=== PATIENT | male | born 1985 | race Caucasian/White ===

== ENCOUNTER 2021-01-12 20:17 | Inpatient (IN) | payer SELFPAY ==
[2021-01-12 20:31] VITALS: BP 128/83; PULSE 95; RESP 18; TEMP 36.8; O2SAT 100; BMI 21.5
[2021-01-12 20:46] LABS: Basophils # 0.1 10^3/uL (0.0-0.1); Basophils % 0.5 %; Eosinophils # 0.3 10^3/uL (0.0-0.8); Eosinophils % 2.4 %; Hematocrit 42.5 % (42.0-52.0); Hemoglobin 13.7 g/dL (11.7-16.6); Lymphocytes # 2.8 10^3/uL (0.8-4.8); Lymphocytes % 26.1 %; Mean Corpuscular HGB Conc 32.2 g/dL (30.0-36.0); Mean Corpuscular Hemoglobin 27.6 pg (28.0-34.0); Mean Corpuscular Volume 85.7 fL (80-94); Mean Platelet Volume 9.1 fL (7.4-10.4); Monocytes # 0.8 10^3/uL (0.2-0.9); Monocytes % 7.2 %; Neutrophils # 6.74 10^3/uL (1.8-7.7); Neutrophils % 63.5 %; Nucleated Red Blood Cells % 0 %; Platelet Count 278 10^3/cmm (130-400); Red Blood Count 4.96 10^6/uL (4.1-5.3); Red Cell Distribution Width 14.2 % (12.1-15.1); White Blood Count 10.6 10^3/uL (4.0-10.0)
[2021-01-12 21:06] LABS: Acetaminophen 5.7 ug/mL (10-30); Alanine Aminotransferase 36 U/L (0-41); Albumin Level 4.3 g/dL (3.5-5.2); Alkaline Phosphatase 93 IU/L (40-130); Anion Gap 12.9 (5-19); Aspartate Amino Transferase 24 U/L (0-40); Blood Urea Nitrogen 14 mg/dL (6-20); Calcium 9.2 mg/dL (8.5-10.5); Carbon Dioxide 31 mmol/L (22-29); Chloride 99 mmol/L (98-107); Globulin 2.9 g/dL (1.3-4.6); Glucose 99 mg/dL (65-115); Osmolality Calculated 289 mOsm/kg (285-295); Potassium 3.9 mmol/L (3.5-5.1); Sodium 139 mmol/L (136-145); Total Bilirubin 0.2 mg/dL (0.15-1.2); Total Protein 7.2 g/dL (6.6-8.7)
--- NOTE | 2021-01-12 21:06 | W.ED.PSYCH ---
HPI - Psych General: Chief Complaint: Psychiatric Symptoms Stated Complaint: SI Time Seen by Provider: 01/12/21 20:26 Source: patient Mode of arrival: ambulatory Limitations: no limitations History of Present Illness: HPI Narrative: 35-year-old male is here with depression and suicidality. He states he has been depressed for years has been having suicidal thoughts over the last 2 to 3 days. He is a chronic opiate addict and is currently on Soma for that. He denies any recent drug or alcohol use. He states that he has been having suicidal thoughts with no active plan but states that he is getting concerned as the thoughts are worsening. Denies any worsening improving factors Associated symptoms: Reports suicidal ideation Review of Systems Const: Denies: fever(s), chills, body aches or change in appetite Eyes: Denies: blurry vision or eye discomfort ENMT: Denies: throat pain or dental pain Card: Denies: chest pain Resp: Denies: dyspnea GI: Denies: abdominal pain, nausea, vomiting or diarrhea : Denies: dysuria Musc: Denies: neck pain or back pain Skin/Breast: Denies: rash Neuro: Denies: headache(s) Psych: Reports: suicidal ideation Pedro/Lymph: Denies: easy bruising All/Imm: Denies: urticaria Physical Exam Const: COMMON NORMALS: no acute distress, patient oriented x3 and healthy appearing HENMT: COMMON NORMALS: normocephalic and atraumatic HEAD & SCALP: normocephalic and atraumatic Eye: COMMON NORMALS: Equal, round and reactive pupils present and EOMs intact bilaterally PUPIL: Yes Equal, round and reactive pupils present Neck/C-Spine: COMMON NORMALS: full ROM and supple Chest: COMMONS NORMALS: normal inspection of the chest and normal palpation of entire chest wall Resp: COMMON NORMALS: normal respiratory effort, No retractions, No use of accessory muscles and clear to auscultation bilaterally AUSCULTATION: clear to auscultation bilaterally Cardio: COMMON NORMALS: regular rate, regular rhythm and No murmurs present (Cardio) RATE: regular rate RHYTHM: regular rhythm GI: COMMON NORMALS: Normal to inspection, nondistended, normoactive bowel sounds present, Soft to palpation, non-tender and no masses PALPATION: Yes Soft to palpation Extremity: COMMON NORMALS: normal to inspection and full ROM Neuro: COMMON NORMALS: patient oriented x3, moves all extremities and no focal motor deficits Psych: COMMON NORMALS: mental status grossly normal, Normal thought process present and cooperative THOUGHT PROCESS: Normal thought process present THOUGHT CONTENT: Yes Suicidality present Skin: COMMON NORMALS: no rashes or lesions noted and no wounds GENERAL SKIN EXAM: no rashes or lesions noted Course Vital Signs: Vital signs: Vital Signs Temperature 98.3 F 01/12/21 20:31 Pulse Rate 95 01/12/21 20:31 Respiratory Rate 18 01/12/21 20:31 Blood Pressure 128/83 01/12/21 20:31 Pulse Oximetry 100 01/12/21 20:31 MDM - Psych MDM Narrative: Medical decision making narrative: Patient presents here with suicidal ideations. Patient is medically cleared I spoke to Dr. Sagastume patient placed on a 96-hour hold and will admit. Lab Data: Labs: Lab Results 01/12/21 01/12/21 Range/Units 20:40 20:40 WBC 10.6 H (4.0-10.0) 10^3/ uL RBC 4.96 (4.1-5.3) 10^6/u L Hgb 13.7 (11.7-16.6) g/dL Hct 42.5 (42.0-52.0) % MCV 85.7 (80-94) fL MCH 27.6 L (28.0-34.0) pg MCHC 32.2 (30.0-36.0) g/dL RDW 14.2 (12.1-15.1) % Plt Count 278 (130-400) 10^3/c mm MPV 9.1 (7.4-10.4) fL Neut % (Auto) 63.5 % Lymph % (Auto) 26.1 % Cascade % (Auto) 7.2 % Eos % (Auto) 2.4 % Baso % (Auto) 0.5 % Neut # (Auto) 6.74 (1.8-7.7) 10^3/u L Lymph # (Auto) 2.8 (0.8-4.8) 10^3/u L Cascade # (Auto) 0.8 (0.2-0.9) 10^3/u L Eos # (Auto) 0.3 (0.0-0.8) 10^3/u L Baso # (Auto) 0.1 (0.0-0.1) 10^3/u L Nucleated RBC % (a uto) 0 % Nucleated RBCs # 0.0 /100WBC Sodium 139 (136-145) mmol/L Potassium 3.9 (3.5-5.1) mmol/L Chloride 99 (98-107) mmol/L Carbon Dioxide 31 H (22-29) mmol/L Anion Gap 12.9 (5-19) BUN 14 (6-20) mg/dL Creatinine 0.8 (0.7-1.2) mg/dL GFR Calculation 110.0 (90-130) mL/min Glucose 99 (65-115) mg/dL Calculated Osmolal ity 289 (285-295) mOsm/k g Calcium 9.2 (8.5-10.5) mg/dL Total Bilirubin 0.2 (0.15-1.2) mg/dL AST 24 (0-40) U/L ALT 36 (0-41) U/L Alkaline Phosphata se 93 (40-130) IU/L Total Protein 7.2 (6.6-8.7) g/dL Albumin 4.3 (3.5-5.2) g/dL Globulin 2.9 (1.3-4.6) g/dL Salicylates < 0.3 L (3-10) mg/dL Acetaminophen 5.7 L (10-30) ug/mL Ethyl Alcohol < 10 (0-10) mg/dL Discharge Plan Discharge Patient Disposition: Admitted As Inpatient Clinical Impression: Suicidal ideation Condition: Stable Coding Level of Care Code ED Wafer Fabrication Technician for Aurelio Fwd Exam Comprehensive
[2021-01-12 21:08] LABS: Alcohol Level < 10 mg/dL (0-10); Salicylate < 0.3 mg/dL (3-10)
[2021-01-12 21:15] LABS: Amphetamines Screen Urine Positive (Negative); Barbiturates Screen Urine Negative (Negative); Benzodiazepines Screen Urine Negative (Negative); Cocaine Screen Urine Negative (Negative); Opiate Screen Urine Positive (Negative); PCP Screen Urine Negative (Negative); THC Screen Urine Positive (Negative)
[2021-01-12] MEDS: LORazepam 2 mg/mL INJ 1 mL IM (21:44)
[2021-01-12 22:51] VITALS: BP 111/79; PULSE 86; RESP 15; TEMP 37.1; O2SAT 96
[2021-01-12 22:53] VITALS: BMI 21.5
--- NOTE | 2021-01-12 23:00 | PC.NURSE ---
ADMIT 35/M 96 hr. hold?SI/no plan BAL is neg. 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 Homeless over the last 2 months, ?living on the streets?. Pt does have recent use of Suboxone 8-2?s BID , Naloxone 2mg BID, unsure of program association and compliance( [place]), last received 12/24/20, no medication presented on arrival. Home Meds held per Dr. Sagastume last filled 08/11/20. Pt sedated on arrival from ED. Received 2mg Ativan for pseudo seizure. PHARMACY IN [facility] PHONE [phone] FAX [phone]
[2021-01-12] MEDS: nicotine 2 mg Gum BUCCAL (23:29)
[2021-01-13 06:00] VITALS: BP 114/68; PULSE 57; RESP 15; TEMP 37.1; O2SAT 99
[2021-01-13 14:00] VITALS: BP 106/68; PULSE 94; RESP 17; TEMP 36.7; O2SAT 99
--- NOTE | 2021-01-13 15:04 | P.HP_ITS ---
Providers/Chief Complaint Admitting Physician: Ash Sagastume MD Chief Complaint: SI HPI NPU History of Present Illness Zan Sagastume is a 35 year old male who presented to the emergency department with the following report: Chief Complaint: Psychiatric Symptoms Stated Complaint: SI Time Seen by Provider: 01/12/21 20:26 Source: patient Mode of arrival: ambulatory Limitations: no limitations History of Present Illness: HPI Narrative: 35-year-old male is here with depression and suicidality. He states he has been depressed for years has been having suicidal thoughts over the last 2 to 3 days. He is a chronic opiate addict and is currently on Soma for that. He denies any recent drug or alcohol use. He states that he has been having suicidal thoughts with no active plan but states that he is getting concerned as the thoughts are worsening. Denies any worsening improving factors Associated symptoms: Reports suicidal ideation. He was admitted to the neuropsychiatric unit for definitive treatment of those issues. He presents today reporting that he had no psychiatric inpatient treatment or significant outpatient treatment with any longevity. He never been on psychiatric medications that he can identify. He reports he smokes about a pack of cigarettes a day, has alcohol very rarely, has marijuana daily and denies cocaine methamphetamine but does endorse significant opiate challenges. He reports he had over half a dozen rehab stays, possibly over half a dozen DUIs. He reports that he was struggling overall and his behavior starting to scare his mother. He reports that he had gotten off of the opiates and has been taking Suboxone and had a provider which was working effectively but then when he was due for his medication last Tuesday his doctor was on vacation and so that put him in a tailspin and now he is in significant withdrawal, feeling depressed and being unclear what to do. Reports having significant anxiety along with those withdrawal symptoms. We discussed the plan as follows. We agreed that we would administer clonidine and additional as needed medications to assist with withdrawal symptoms today. But we discussed the fact that we would write for his Suboxone while he is in the hospital if we get confirmation from his provider that they will continue his treatment and provide a prescription for him for an appointment to get a prescription on the day of discharge. He understood and agreed proceed as documented in this note. Psychiatric history: As above. He does report having a couple suicide attempt in his life the last one was about 10 years ago. Substance abuse history: As above. Family history: He endorses having mental health issues on his father side of family, addiction issues on the sides of the family and endorses that his father completed suicide when he was about 4 years old. Developmental history: There were no problems with the , or delivery, learned to walk and talk and met developmental milestones on time, and denies need for speech therapy, learning support, emotional support or special education classes. Psychosocial history: He reports his mother and father were together when he was born and stayed together until his father committed suicide. He has a younger sister that is a product of that union. Neither of his parents have any children other than those two. He reports that after his father and grandmother raised them. He reports his childhood was fine. He denies any emotional physical or sexual abuse. Highest grade reach was 11th grade and has not gotten his GED. He en dorses being a heterosexual as well as relationship being 3 to 4 years. He is been one time and was in June 2017 due to a drug overdose by his , he never had biological children, is never in the and denies any pentecostal [employer] system. 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 He reports he is currently homeless for few weeks because he was living above or in the shop that he was working but that he lost his job so he lost his housing. Legal history: He reports that he is been in detention many times. His longest time behind bars and wants is 4 to 5 months. Medical history: Please see ED note for full details but he does have poor dentition. Meds NPU Home Medications Medication Instructions Recorded Confirmed Last Taken Type buprenorphine-naloxone 1 film SUBLINGUAL BID 01/14/21 01/14/21 12/31/20 History Allergies Allergy/AdvReac Type Severity Reaction Status Date / Time No Known Allergies Allergy Verified 01/12/21 20:41 Mental Status Exam MSE Comments: This is a slender/underweight white male in hospital scrubs with limited grooming and eye contact. No abnormal movements except for psychomotor retardation. Semicooperative with exam in mild to moderate distress. Speech was decreased rate and volume. Mood described as tired, affect annoyed. Thought process organized. Thought content: Patient denied suicidal or homicidal ideation, there were no delusions reported or noted, he denied any auditory or visual hallucinations. Attention and concentration were limited and memory was mostly reliable but none were formally tested. He is alert and oriented x3. Insight and judgment are limited and impulse control is impaired. Vitals/I&O/Wt Last Vital Signs Temp 98.1 F 01/13/21 14:00 Pulse 94 01/13/21 14:00 Resp 17 01/13/21 14:00 BP 106/68 01/13/21 14:00 Pulse Ox 99 01/13/21 14:00 Weight last 48 hrs Weight 68.039 kg Weight 68.039 kg Data NPU : 01/12/21 20:40 01/12/21 20:40 A&P Assessment and plan (1) Suicidal ideation: Status: Acute (2) Opiate use: Status: Acute (3) Opioid withdrawal: Status: Acute (4) Depression: Status: Acute (5) Anxiety: Status: Acute Additional A&P Information This is a 35-year-old white male with a long history of addiction who presents with depression, and current withdrawal. 1. Continue current medication. We will start on guardian for withdrawal symptoms consider prescribing some once a outpatient provider. 2. Continue every 15 minute checks for safety. 3. Encourage individual, group and milieu therapies. 4. Encourage sober living treatment after discharge at the highest level of care to which he is willing to commit. Involuntary Hold Information 96 Hour Hold: 96 Hour Involuntary Admission: Yes 96 Hour Hold Ending Date: 01/16/21 96 Hour Hold Ending Time: 21:44 Attestations NPU Medical Necessity Statement*: Inpatient hospitalization is medically necessary and the clinically appropriate intervention at this time. We will monitor medications and make changes as indicated. Patient will be in the hospital for over two midnights. Likely length of stay 2-4 Coding Level of Care Code Acute Fire Equipment Inspector Helper for Chg Fwd Diagnoses Suicidal ideation R45.851 Opiate use F11.90 Opioid withdrawal F11.23 Depression F32.9 Anxiety F41.9
[2021-01-13] MEDS: ondansetron 4 MG Tablet PO (17:51)
--- NOTE | 2021-01-13 18:09 | PC.NURSE ---
PRN ZOFRAN 4 MG GIVEN PO PER PT C/O NAUSEA/VOMITING. PT THREW UP ON FLOOR IN HIS ROOM, CLEANED UP BY NURSING STAFF. CALL PLACED TO HOUSEKEEPING TO MOP FLOOR. PT RESTING IN BED CURRENTLY STAFF WILL CONT TO MONITOR CLOSELY
[2021-01-13 21:12] VITALS: BP 142/86; PULSE 59; RESP 18; TEMP 36.6; O2SAT 96
[2021-01-13] MEDS: trazodone 50 mg Tablet PO (22:28)
[2021-01-14 06:00] VITALS: BP 124/78; PULSE 76; RESP 18; TEMP 37.1; O2SAT 97
[2021-01-14] MEDS: acetaminophen 325 mg Tablet 650 MG PO ×2 (09:39→22:02)
[2021-01-14] MEDS: hyDROXYzine 25 mg Capsule 50 MG PO ×2 (09:39→21:52)
[2021-01-14] MEDS: cloNIDine 0.1 mg Tablet PO (09:40)
[2021-01-14] MEDS: nicotine 21 mg Patch 1 PATCH TRANSDERMA (10:35)
--- NOTE | 2021-01-14 11:15 | PC.NURSE ---
Syeda from Claud[facility] office in [place] has verified that patient has been on Suboxone. Patient has an appointment with Claudette on 01/20 and she has called in a refill for the Suboxone to [facility] in [facility]. She is giving him 5 days of medication. - 01/20 to cover him until he is seen.
[2021-01-14] MEDS: buprenorphine-naloxone 4-1 mg Film 2 EACH SUBLINGUAL ×2 (13:28→17:32)
[2021-01-14 14:00] VITALS: BP 89/55; PULSE 71; RESP 18; TEMP 36.8; O2SAT 96
--- NOTE | 2021-01-14 17:46 | PC.NURSE ---
Per Dr. Sagastume patient may use his elastic knee brace.
--- NOTE | 2021-01-14 17:58 | PM.NPN ---
Subjective NPU Subjective: Interval history: Christina presents today reporting that he is feeling a little bit better now that he is got the dose of the Suboxone. He was very thankful for us collaborating with his outpatient team to get him reconnected with his provider who had been on vacation. He reports he started to feel a little better. We discussed getting a couple doses in and identifying if he feels well enough to consider discharge in the next day or so. Mental Status Exam MSE Comments: This is a slender/underweight white male in hospital scrubs with limited grooming and eye contact. No abnormal movements except for psychomotor retardation. More cooperative with exam in mild distress. Speech was decreased rate and volume. Mood described as starting to feel better, affect congruent. Thought process organized. Thought content: Patient denied suicidal or homicidal ideation, there were no delusions reported or noted, he denied any auditory or visual hallucinations. Attention and concentration were improving and memory was mostly reliable but none were formally tested. He is alert and oriented x3. Insight and judgment are improving and impulse control is limited, but improving. Vitals/I&O/Wt Last Vital Signs Temp 97.8 F 01/14/21 20:28 Pulse 73 01/14/21 20:28 Resp 18 01/14/21 20:28 BP 99/56 01/14/21 20:28 Pulse Ox 96 01/14/21 20:28 Data NPU : 01/12/21 20:40 01/12/21 20:40 A&P Additional A&P Information (1) Suicidal ideation: (2) Opiate use: (3) Opioid withdrawal: (4) Depression: (5) Anxiety: Additional A&P Information This is a 35-year-old white male with a long history of addiction who presents with depression, and current withdrawal. 1. Continue current medication. We'll start Suboxone inpatient with a plan to discharge in the next 48 hours with outpatient prescription already called in by provider. 2. Continue every 15 minute checks for safety. 3. Encourage individual, group and milieu therapies. 4. Encourage sober living treatment after discharge at the highest level of care to which he is willing to commit. Involuntary Hold Information 96 Hour Hold: 96 Hour Involuntary Admission: Yes 96 Hour Hold Ending Date: 01/16/21 96 Hour Hold Ending Time: 21:44 Attestations NPU Medical Necessity Statement*: Inpatient hospitalization is medically necessary and the clinically appropriate intervention at this time. We will monitor medications and make changes as indicated. Likely length of stay 1-3 days. Coding Level of Care Code Acute Office Clerk for Aurelio Mcclure
[2021-01-14 20:28] VITALS: BP 99/56; PULSE 73; RESP 18; TEMP 36.6; O2SAT 96
--- NOTE | 2021-01-14 21:49 | PC.NURSE ---
PRNS/nausea/hunger Visteril 50mg PO given for anxiety Vernon gum received, removed nicotine patch zofran 4mg po given for nausea trazodone 50mg PO given to help patient rest Pt came to desk stating he was hungry, was nauseated the last couple of days, and would like something to eat. Pt received clear beverage, chicken noodle soup, crackers, and medication.
[2021-01-14] MEDS: trazodone 50 mg Tablet PO (21:52)
[2021-01-14] MEDS: ondansetron 4 MG Tablet PO (21:52)
[2021-01-14] MEDS: nicotine 2 mg Gum BUCCAL (21:53)
[2021-01-15 06:00] VITALS: BP 123/69; PULSE 68; RESP 18; TEMP 36.9; O2SAT 96
[2021-01-15] MEDS: sennosides 8.6 mg Tablet PO ×2 (08:21→21:17)
[2021-01-15] MEDS: buprenorphine-naloxone 4-1 mg Film 2 EACH SUBLINGUAL ×2 (08:21→18:42)
[2021-01-15] MEDS: nicotine 21 mg Patch 1 PATCH TRANSDERMA (09:30)
[2021-01-15 13:46] VITALS: BP 99/65; PULSE 89; RESP 16; TEMP 37.1; O2SAT 96
--- NOTE | 2021-01-15 17:57 | PM.NPN ---
Subjective NPU Subjective: Interval history: And presents today reporting that things are going better each day and he feels a little better now he is on Suboxone again. He has been working with the treatment team for discharge planning. Resources are being put in place with a plan for discharge in the morning. Mental Status Exam MSE Comments: This is a slender/underweight white male in hospital scrubs with limited grooming and eye contact. No abnormal movements except for psychomotor retardation, with mild improvement. More cooperative with exam in no acute distress. Speech was decreased rate and volume. Mood described as starting to feel better, affect congruent. Thought process organized. Thought content: Patient denied suicidal or homicidal ideation, there were no delusions reported or noted, he denied any auditory or visual hallucinations. Attention and concentration were improving and memory was mostly reliable but none were formally tested. He is alert and oriented x3. Insight and judgment are improving and impulse control is improving. Vitals/I&O/Wt Last Vital Signs Temp 97.5 F L 01/15/21 21:28 Pulse 100 01/15/21 21:28 Resp 18 01/15/21 21:28 BP 110/77 01/15/21 21:28 Pulse Ox 95 01/15/21 21:28 Data NPU : 01/12/21 20:40 01/12/21 20:40 A&P Additional A&P Information (1) Suicidal ideation: (2) Opiate use: (3) Opioid withdrawal: (4) Depression: (5) Anxiety: Additional A&P Information This is a 35-year-old white male with a long history of addiction who presents with depression, and current withdrawal. 1. Continue current medication. 2. Continue every 15 minute checks for safety. 3. Encourage individual, group and milieu therapies. 4. Encourage sober living treatment after discharge at the highest level of care to which he is willing to commit. Involuntary Hold Information 96 Hour Hold: 96 Hour Involuntary Admission: Yes 96 Hour Hold Ending Date: 01/16/21 96 Hour Hold Ending Time: 21:44 Attestations NPU Medical Necessity Statement*: Inpatient hospitalization is medically necessary and the clinically appropriate intervention at this time. We will monitor medications and make changes as indicated. Plan for discharge tomorrow. Coding Level of Care Code Acute Livestock Judging Coach for Aurelio Mcclure
[2021-01-15] MEDS: hyDROXYzine 25 mg Capsule 50 MG PO ×2 (18:42→21:17)
[2021-01-15] MEDS: trazodone 50 mg Tablet PO (21:17)
[2021-01-15] MEDS: nicotine 2 mg Gum BUCCAL (21:17)
--- NOTE | 2021-01-15 21:20 | PC.NURSE ---
Patient C/O being anxious and not being able to sleep; requesting medication to help. Patient given 50mg Trazodone PO and 50mg Vistaril PO.
[2021-01-15 21:28] VITALS: BP 110/77; PULSE 100; RESP 18; TEMP 36.4; O2SAT 95
--- NOTE | 2021-01-15 22:25 | PC.NURSE ---
PRN's given Trazodone 50mg po to help pt sleep Senna Lax, pt reports constipation gerry gum, and Vistaril 50mg PO for anxiety
[2021-01-16 06:00] VITALS: BP 93/60; PULSE 65; RESP 16; TEMP 36.6; O2SAT 96
--- NOTE | 2021-01-16 07:17 | P.DS_ITS ---
Diagnoses at Discharge Discharge Diagnosis (1) Suicidal ideation: Status: Resolved (2) Opiate use: Status: Resolved (3) Opioid withdrawal: Status: Resolved (4) Depression: Status: Acute (5) Anxiety: Status: Acute Reason for Visit Reason for Visit: SI Brief History: History of Present Illness Zan Sagastume is a 35 year old male who presented to the emergency department with the following report: Chief Complaint: Psychiatric Symptoms Stated Complaint: SI Time Seen by Provider: 01/12/21 20:26 Source: patient Mode of arrival: ambulatory Limitations: no limitations History of Present Illness: HPI Narrative: 35-year-old male is here with depression and suicidality. He states he has been depressed for years has been having suicidal thoughts over the last 2 to 3 days. He is a chronic opiate addict and is currently on Soma for that. He denies any recent drug or alcohol use. He states that he has been having suicidal thoughts with no active plan but states that he is getting concerned as the thoughts are worsening. Denies any worsening improving factors Associated symptoms: Reports suicidal ideation. He was admitted to the neuropsychiatric unit for definitive treatment of those issues. He presents today reporting that he had no psychiatric inpatient treatment or significant outpatient treatment with any longevity. He never been on psychiatric medications that he can identify. He reports he smokes about a pack of cigarettes a day, has alcohol very rarely, has marijuana daily and denies cocaine methamphetamine but does endorse significant opiate challenges. He reports he had over half a dozen rehab stays, possibly over half a dozen DUIs. He reports that he was struggling overall and his behavior starting to scare his mother. He reports that he had gotten off of the opiates and has been taking Suboxone and had a provider which was working effectively but then when he was due for his medication last Tuesday his doctor was on vacation and so that put him in a tailspin and now he is in significant withdrawal, feeling depressed and being unclear what to do. Reports having significant anxiety along with those withdrawal symptoms. We discussed the plan as follows. We agreed that we would administer clonidine and additional as needed medications to assist with withdrawal symptoms today. But we discussed the fact that we would write for his Suboxone while he is in the hospital if we get confirmation from his provider that they will continue his treatment and provide a prescription for him for an appointment to get a prescription on the day of discharge. He understood and agreed proceed as documented in this note. Psychiatric history: As above. He does report having a couple suicide attempt in his life the last one was about 10 years ago. Substance abuse history: As above. Family history: He endorses having mental health issues on his father side of family, addiction issues on the sides of the family and endorses that his father completed suicide when he was about 4 years old. Developmental history: There were no problems with the , or delivery, learned to walk and talk and met developmental milestones on time, and denies need for speech therapy, learning support, emotional support or special education classes. Psychosocial history: He reports his mother and father were together when he was born and stayed together until his father committed suicide. He has a younger sister that is a product of that union. Neither of his parents have any children other than those two. He reports that after his father and grandmother raised them. He reports his childhood was fine. He denies any emotional physical or sexual abuse. Highest grade reach was 11th grade and has not gotten his GED. He endorses being a heterosexual as well as relationship being 3 to 4 years. He is been one time and was in June 2017 due to a drug overdose by his , he never had biological children, is never in the and denies any protestant [place] system. 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 He reports he is currently homeless for few weeks because he was living above or in the shop that he was working but that he lost his job so he lost his housing. Legal history: He reports that he is been in senior care many times. His longest time behind bars and coramaze [employer]iess is 4 to 5 months. Medical history: Please see ED note for full details but he does have poor dentition. Hospital Course Hospital Course Presented to the emergency department with depression, lethality and struggling with addiction secondary to not having access to his Suboxone. He was admitted to the neuropsychiatric unit for definitive treatment of those issues. On the unit he slowly acclimated to the individual, group and milieu therapies provided and was in significant withdrawal. We were able to get a hold of his provider identified the unfortunate situation that occurred. Ultimately they gave him a new appointment and sent a prescription to his pharmacy and we restarted his Suboxone. He had marked improvement. He was able to contract for safety prior to discharge. With during the hospitalization, patient had routine laboratory studies which were within normal limits except for few outliers. Additionally there was a general medical evaluation which was also within normal limits and revealed no new acute processes. Discharge Summary: At the time of discharge, he denied psychosis or lethality. Mood and anxiety were well managed. Patient endorsed a plan to avoid all drugs of abuse and follow-up with the aftercare recommendations of the treatment team. Patient was evaluated and deemed to be absent credible lethality, and had achieved the maximum benefit from an inpatient hospitalization, so was discharged. Involuntary Hold Information 96 Hour Hold: 96 Hour Involuntary Admission: Yes 96 Hour Hold Ending Date: 01/16/21 96 Hour Hold Ending Time: 21:44 Mental Status Exam MSE Comments: This is a slender/underweight white male in hospital scrubs with limited grooming and eye contact. No abnormal movements except for resolving psychomotor retardation. Cooperative with exam in no acute distress. Speech was more normal rate and volume. Mood described as better, affect congruent. Thought process organized. Thought content: Patient denied suicidal or homicidal ideation, there were no delusions reported or noted, he denied any auditory or visual hallucinations. Attention and concentration were improving and memory was mostly reliable but none were formally tested. He is alert and oriented x3. Insight and judgment are improving and impulse control is im proving. Discharge Data Vitals: Last Vital Signs Temp 97.9 F 01/16/21 06:00 Pulse 65 01/16/21 06:00 Resp 16 01/16/21 06:00 BP 93/60 01/16/21 06:00 Pulse Ox 96 01/16/21 06:00 Discharge Plan Discharge Patient Disposition: Home Condition: Stable Prescriptions: New trazodone 50 mg Tablet 50 mg PO BEDTIME PRN (Reason: Insomnia) 30 Days Qty: 30 RF: 1 Continued buprenorphine-naloxone 8-2 mg film 1 film sublingual BID RF: 0 Discharge Orders: Discharge Order (Routine); Ordered 01/16/21 Ordered By: Ash Sagastume Referrals: [facility] Ulices Lundberg [Other] - 01/20/21 10:45 am (Medication follow-up with MACI Lundberg) Discharge Diet: Regular Discharge Activity: Resume usual activity Patient Instructions: Marijuana Abuse, Depression (DC), Methamphetamine Abuse (DC), Anxiety (DC), Opioid Safety Discharge Attestations NPU Time Spent in Discharge Care*: less than 30 min Specific Discharge Activities: Specific discharge activities: educating patient, discussing with family independence case manager/social workers/dc planners, documenting/other paperwork and evaluating patient/reviewing data Coding Level of Care Code Acute Chg FW DC note Diagnoses Suicidal ideation R45.851 Opiate use F11.90 Opioid withdrawal F11.23 Depression F32.9 Anxiety F41.9
[2021-01-16] MEDS: buprenorphine-naloxone 4-1 mg Film 2 EACH SUBLINGUAL (07:48)
[2021-01-16] MEDS: nicotine 21 mg Patch 1 PATCH TRANSDERMA (07:49)
[2021-01-16] MEDS: BuSPIRONE 10 mg Tablet 15 MG PO (10:33)
--- NOTE | 2021-01-16 11:15 | PC.NURSE ---
prn 0749 applied Vernon patch on left outer upper arm. will continue to monitor pt.
--- NOTE | 2021-01-16 11:20 | PC.NURSE ---
pt is c/o anxiety, current vitals BP 110/78 P 100 SpO2 97% , pt has been resting most of this shift
[2021-01-16 13:58] VITALS: BP 93/60; PULSE 65; RESP 16; TEMP 36.6; O2SAT 96
--- NOTE | 2021-01-16 15:01 | PC.NURSE ---
SCRIPT FOR TRAZODONE INITIALLY TRANSMITTED TO [facility] IN [place]. PT CONCERNED THAT HE MAY NOT BE ABLE TO AFFORD MEDICATION AND MACHINE PACKAGER OFFERED TO CONTACT OUR [facility] SO THAT WE WOULD BE ABLE TO ENSURE THAT HE OBTAINED HIS MEDICATION PRIOR TO DISCHARGE. PT AGREED AND MACHINE PACKAGER CONTACTED [facility] TO FILL SCRIPT, AND CALL WAS PLACED TO [facility] TO CANCEL.
== END 2021-01-16 16:00 | disposition home or self-care (01) | DRG 881 ==
LOC: ER 21:14 → NP 22:20
PROVIDERS: Admitting Provider Psychiatry & Neurology Psychiatry; Emergency Provider Emergency Medicine; Visit Provider Psychiatry & Neurology Psychiatry
DX: F32.9 Major depressive disorder, single episode, unspecified (principal); R45.851 Suicidal ideations; F11.23 Opioid dependence with withdrawal; F41.9 Anxiety disorder, unspecified; F17.210 Nicotine dependence, cigarettes, uncomplicated; F12.90 Cannabis use, unspecified, uncomplicated; K08.9 Disorder of teeth and supporting structures, unspecified; Z91.5 Personal history of self-harm; Z59.0 Homelessness; Z81.8 Family history of other mental and behavioral disorders
CPT/HCPCS: 80053; 80306; 80307; 85025; 96372; 99285; J0573; J2060; Q0162

== ENCOUNTER 2021-03-24 03:34 | Observation (INO) | payer SELFPAY ==
[2021-03-24 03:41] VITALS: BP 123/80; PULSE 88; RESP 16; TEMP 36.6; O2SAT 97; BMI 21.5
--- NOTE | 2021-03-24 04:28 | W.ED.PSYCH ---
HPI - Psych General: Chief Complaint: Psychiatric Symptoms Stated Complaint: Si Time Seen by Provider: 03/24/21 04:10 Source: patient Mode of arrival: ambulatory Limitations: no limitations History of Present Illness: HPI Narrative: 35-year-old male who has a history of depression states he is having increasing suicidal ideations. He states that he is starting to concern him may kill himself as he is having more and more suicidal thoughts. He states he has no specific plan but does want help. He denies any worsening improving factors. He states that he has been a former drug user and does use Suboxone. Denies any recent use. Associated symptoms: Deny depression Review of Systems Const: Denies: fever(s), chills, body aches or change in appetite Eyes: Denies: blurry vision or eye discomfort ENMT: Denies: throat pain or dental pain Card: Denies: chest pain Resp: Denies: dyspnea GI: Denies: abdominal pain, nausea, vomiting or diarrhea : Denies: dysuria Musc: Denies: neck pain or back pain Skin/Breast: Denies: rash Neuro: Denies: headache(s) Psych: Denies: depression Pedro/Lymph: Denies: easy bruising All/Imm: Denies: urticaria Physical Exam Const: COMMON NORMALS: no acute distress, patient oriented x3 and healthy appearing HENMT: COMMON NORMALS: normocephalic and atraumatic HEAD & SCALP: normocephalic and atraumatic Eye: COMMON NORMALS: Equal, round and reactive pupils present and EOMs intact bilaterally PUPIL: Yes Equal, round and reactive pupils present Neck/C-Spine: COMMON NORMALS: full ROM and supple Chest: COMMONS NORMALS: normal inspection of the chest and normal palpation of entire chest wall Resp: COMMON NORMALS: normal respiratory effort, No retractions, No use of accessory muscles and clear to auscultation bilaterally AUSCULTATION: clear to auscultation bilaterally Cardio: COMMON NORMALS: regular rate, regular rhythm and No murmurs present (Cardio) RATE: regular rate RHYTHM: regular rhythm GI: COMMON NORMALS: Normal to inspection, nondistended, normoactive bowel sounds present, Soft to palpation, non-tender and no masses PALPATION: Yes Soft to palpation Extremity: COMMON NORMALS: normal to inspection and full ROM Neuro: COMMON NORMALS: patient oriented x3, moves all extremities and no focal motor deficits Psych: COMMON NORMALS: mental status grossly normal, Normal thought process present and cooperative MOOD & AFFECT: Yes depressed mood THOUGHT PROCESS: Normal thought process present THOUGHT CONTENT: Yes Suicidality present Skin: COMMON NORMALS: no rashes or lesions noted and no wounds GENERAL SKIN EXAM: no rashes or lesions noted Course Vital Signs: Vital signs: Vital Signs Temperature 97.9 F 03/24/21 03:41 Pulse Rate 88 03/24/21 03:41 Respiratory Rate 16 03/24/21 03:41 Blood Pressure 123/80 03/24/21 03:41 Pulse Oximetry 97 03/24/21 03:41 MDM - Psych MDM Narrative: Medical decision making narrative: Patient presents here with suicidal ideation and depression. Patient is medically cleared I spoke to the psychiatrist and will admit to the psychiatric unit. Lab Data: Labs: Lab Results 03/24/21 03/24/21 03/24/21 Range/Units 04:40 04:40 04:40 WBC 10.8 H (4.0-10.0) 10^3/ uL RBC 4.75 (4.1-5.3) 10^6/u L Hgb 13.2 (11.7-16.6) g/dL Hct 40.9 L (42.0-52.0) % MCV 86.1 (80-94) fl MCH 27.8 L (28.0-34.0) pg MCHC 32.3 (30.0-36.0) g/dL RDW 14.2 (12.1-15.1) % Plt Count 245 (130-400) 10^3/c mm MPV 9.6 (7.4-10.4) fL Neut % (Auto) 60.7 % Lymph % (Auto) 30.6 % Monona % (Auto) 5.8 % Eos % (Auto) 2.0 % Baso % (Auto) 0.5 % Neut # (Auto) 6.55 (1.8-7.7) 10^3/u L Lymph # (Auto) 3.3 (0.8-4.8) 10^3/u L Monona # (Auto) 0.6 (0.2-0.9) 10^3/u L Eos # (Auto) 0.2 (0.0-0.8) 10^3/u L Baso # (Auto) 0.1 (0.0-0.1) 10^3/u L Nucleated RBC % (a uto) 0 % Nucleated RBCs # 0.0 /100WBC Sodium 142 (136-145) mmol/L Potassium 4.0 (3.5-5.1) mmol/L Chloride 101 (98-107) mmol/L Carbon Dioxide 30 H (22-29) mmol/L Anion Gap 15.0 (5-19) BUN 13 (6-20) mg/dL Creatinine 0.7 (0.7-1.2) mg/dL GFR Calculation 128.3 (90-130) mL/min Glucose 95 (65-115) mg/dL Calculated Osmolal ity 294 (285-295) mOsm/k g Calcium 9.3 (8.5-10.5) mg/dL Total Bilirubin 0.3 (0.15-1.2) mg/dL AST 14 (0-40) U/L ALT 10 (0-41) U/L Alkaline Phosphata se 101 (40-130) IU/L Total Protein 7.3 (6.6-8.7) g/dL Albumin 4.4 (3.5-5.2) g/dL Globulin 2.9 (1.3-4.6) g/dL Salicylates < 0.3 L (3-10) mg/dL Urine Opiates Scre en Negative (Negative) ng/mL Acetaminophen < 5.0 L (10-30) ug/mL Ur Barbiturates Sc reen Negative (Negative) ng/mL Ur Phencyclidine S crn Negative (Negative) ng/mL Ur Amphetamines Sc reen Positive H (Negative) ng/mL U Benzodiazepines Scrn Negative (Negative) ng/mL Urine Cocaine Scre en Negative (Negative) ng/mL U Marijuana (THC) Screen Positive H (Negative) ng/mL Ethyl Alcohol 60 H (0-10) mg/dL Discharge Plan Discharge Patient Disposition: Admitted As Inpatient Clinical Impression: Suicidal ideation Condition: Stable Coding Level of Care Code ED Refrigerated Cargo Clerk for Aurelio Fwd Exam Comprehensive
[2021-03-24 04:50] LABS: Basophils # 0.1 10^3/uL (0.0-0.1); Basophils % 0.5 %; Eosinophils # 0.2 10^3/uL (0.0-0.8); Hematocrit 40.9 % (42.0-52.0); Hemoglobin 13.2 g/dL (11.7-16.6); Lymphocytes # 3.3 10^3/uL (0.8-4.8); Lymphocytes % 30.6 %; Mean Corpuscular HGB Conc 32.3 g/dL (30.0-36.0); Mean Corpuscular Hemoglobin 27.8 pg (28.0-34.0); Mean Corpuscular Volume 86.1 fl (80-94); Mean Platelet Volume 9.6 fL (7.4-10.4); Monocytes # 0.6 10^3/uL (0.2-0.9); Monocytes % 5.8 %; Neutrophils # 6.55 10^3/uL (1.8-7.7); Neutrophils % 60.7 %; Nucleated Red Blood Cells % 0 %; Platelet Count 245 10^3/cmm (130-400); Red Blood Count 4.75 10^6/uL (4.1-5.3); Red Cell Distribution Width 14.2 % (12.1-15.1); White Blood Count 10.8 10^3/uL (4.0-10.0)
[2021-03-24 05:00] LABS: Amphetamines Screen Urine Positive (Negative); Barbiturates Screen Urine Negative (Negative); Benzodiazepines Screen Urine Negative (Negative); Cocaine Screen Urine Negative (Negative); Opiate Screen Urine Negative (Negative); PCP Screen Urine Negative (Negative); THC Screen Urine Positive (Negative)
[2021-03-24 05:03] LABS: Alanine Aminotransferase 10 U/L (0-41); Albumin Level 4.4 g/dL (3.5-5.2); Alcohol Level 60 mg/dL (0-10); Alkaline Phosphatase 101 IU/L (40-130); Aspartate Amino Transferase 14 U/L (0-40); Blood Urea Nitrogen 13 mg/dL (6-20); Calcium 9.3 mg/dL (8.5-10.5); Carbon Dioxide 30 mmol/L (22-29); Chloride 101 mmol/L (98-107); Globulin 2.9 g/dL (1.3-4.6); Glomerular Filtration Rate 128.3 mL/min (90-130); Glucose 95 mg/dL (65-115); Osmolality Calculated 294 mOsm/kg (285-295); Sodium 142 mmol/L (136-145); Total Bilirubin 0.3 mg/dL (0.15-1.2); Total Protein 7.3 g/dL (6.6-8.7)
[2021-03-24 05:09] LABS: Acetaminophen < 5.0 ug/mL (10-30); Salicylate < 0.3 mg/dL (3-10)
[2021-03-24] MEDS: LORazepam 2 mg Tablet PO (05:30)
[2021-03-24 05:39] VITALS: BP 124/81; PULSE 88; RESP 17; TEMP 36.6; O2SAT 97
[2021-03-24 06:28] VITALS: BP 148/80; PULSE 88; RESP 20; TEMP 36.5; O2SAT 96
--- NOTE | 2021-03-24 07:11 | PC.NURSE ---
35/M +BAL 60 DOA/ +THC, Meth+ 96hr hold 03/30/21@0435 who has a history of depression states he is having increasing suicidal ideations. Pt states he is starting to have concerns that he will kill himself.Pt is having increased suicidal thoughts. He states he has no specific plan but does want help. He denies any worsening improving factors. He states that he has been a former drug user and does use Suboxone. pt is upset that he is on a hold. Says he was not informed in the ED.
--- NOTE | 2021-03-24 07:22 | PC.NURSE ---
Skin Large scar left rib cage
--- NOTE | 2021-03-24 08:56 | P.HP_ITS ---
Providers/Chief Complaint Admitting Physician: Jann Cruz MD Chief Complaint: SI HPI NPU History of Present Illness Zan Sagastume is a 35 year old male Meds NPU Home Medications Medication Instructions Recorded Confirmed Last Taken Type buprenorphine-naloxone 1 film SUBLINGUAL TID 01/14/21 03/24/21 03/23/21 History trazodone 50 mg PO BEDTIME PRN 30 Days #30 01/16/21 03/24/21 02/19/21 Rx tab Allergies Allergy/AdvReac Type Severity Reaction Status Date / Time No Known Allergies Allergy Verified 03/24/21 06:40 Vitals/I&O/Wt Last Vital Signs Temp 97.7 F 03/24/21 06:28 Pulse 88 03/24/21 06:28 Resp 20 H 03/24/21 06:28 BP 148/80 03/24/21 06:28 Pulse Ox 96 03/24/21 06:28 Weight last 48 hrs Weight 68.039 kg Data NPU : 03/24/21 04:40 03/24/21 04:40 Involuntary Hold Information 96 Hour Hold: 96 Hour Involuntary Admission: Yes 96 Hour Hold Ending Date: 03/30/21 96 Hour Hold Ending Time: 04:35 Coding Level of Care Code Acute Associate Property Manager for Aurelio Mcclure
--- NOTE | 2021-03-24 12:10 | NPU.GN ---
[facility] Group Topic: Thought processing General Mood of Group: Patient did not come to group today, just got early in the AM.
--- NOTE | 2021-03-24 12:27 | PM.SDS ---
Short Stay Summary Providers Date of Admit/Discharge: 04/09/21 Attending Provider: Jann Cruz MD Chief Complaint: SI HPI History of Present Illness Zan Sagastume is a 35 year old male who presented to the ED. The ED note states: 35-year-old male who has a history of depression states he is having increasing suicidal ideations. He states that he is starting to concern him may kill himself as he is having more and more suicidal thoughts. He states he has no specific plan but does want help. He denies any worsening improving factors. He states that he has been a former drug user and does use Suboxone. Denies any recent use. Associated symptoms: Deny depression The patient says that he has been been feeling depressed and has felt he would be better off if he was not here. But no thoughts, plans, or intentions to kill himself. No homicidal ideation. No auditory or visual hallucinations. He says he has been thinking of ways to live. He has had previous hospital admissions. Dr. Sagastume admission note from 01/13/21 states: HPI Narrative: 35-year-old male is here with depression and suicidality. He states he has been depressed for years has been having suicidal thoughts over the last 2 to 3 days. He is a chronic opiate addict and is currently on Soma for that. He denies any recent drug or alcohol use. He states that he has been having suicidal thoughts with no active plan but states that he is getting concerned as the thoughts are worsening. Denies any worsening improving factors Associated symptoms: Reports suicidal ideation. He was admitted to the neuropsychiatric unit for definitive treatment of those issues. He presents today reporting that he had no psychiatric inpatient treatment or significant outpatient treatment with any longevity. He never been on psychiatric medications that he can identify. He reports he smokes about a pack of cigarettes a day, has alcohol very rarely, has marijuana daily and denies cocaine methamphetamine but does endorse significant opiate challenges. He reports he had over half a dozen rehab stays, possibly over half a dozen DUIs. He reports that he was struggling overall and his behavior starting to scare his mother. He reports that he had gotten off of the opiates and has been taking Suboxone and had a provider which was working effectively but then when he was due for his medication last Tuesday his doctor was on vacation and so that put him in a tailspin and now he is in significant withdrawal, feeling depressed and being unclear what to do. Reports having significant anxiety along with those withdrawal symptoms. We discussed the plan as follows. We agreed that we would administer clonidine and additional as needed medications to assist with withdrawal symptoms today. But we discussed the fact that we would write for his Suboxone while he is in the hospital if we get confirmation from his provider that they will continue his treatment and provide a prescription for him for an appointment to get a prescription on the day of discharge. He understood and agreed proceed as documented in this note. Home Meds/Allergies Home Medications and Allergies Home Medications Medication Instructions Recorded Confirmed Type buprenorphine-naloxone 1 film SUBLINGUAL TID 01/14/21 04/02/21 History Allergies Allergy/AdvReac Type Severity Reaction Status Date / Time No Known Allergies Allergy Verified 03/24/21 06:40 opiates Allergy Severe swelling, Uncoded 04/02/21 09:33 heart paltations PFSH Acute PFSH: Medical History (Updated 04/09/21 @ 09:35 by Jann Cruz MD) Psychiatric care Vitals/I&O/Wt Last Vital Signs Temp 97.7 F 03/24/21 06:28 Pulse 88 03/24/21 06:28 Resp 20 H 03/24/21 06:28 BP 148/80 03/24/21 06:28 Pulse Ox 96 03/24/21 06:28 Weight last 48 hrs Weight 68.039 kg Hospital Course Hospital Course The patient was admitted to the neuropsychiatric unit. Once he arrived, slept a bit, and had a chance to think about things, he decided he no longer wanted to be treawted as an inpatient. Since he had no active suicidal ideation in the ED or on the unit, we determined it would be safe to discharge him. He was receptive to treatment team recommendations and showed modest improvement and was able to contract for safety prior to discharge. During the hospitalization, patient had routine laboratory studies which were within normal limits except for few outliers. Additionally there was a general medical evaluation which was also within normal limits and revealed no new acute processes. Discharge Summary At the time of discharge, psychosis and lethality were denied. Mood and anxiety were well managed. Patient endorsed a plan to avoid all drugs of abuse and follow-up with the aftercare recommendations of the treatment team. Patient was evaluated and deemed to be absent credible lethality, and had achieved the maximum benefit from an inpatient hospitalization, so was discharged. Diagnoses at Discharge Discharge Diagnosis (1) Anxiety: Status: Resolved (2) Depression: Status: Resolved (3) Opiate use: Status: Chronic Discharge Plan Discharge Patient Disposition: Home Condition: Stable Prescriptions: Continued buprenorphine-naloxone 8-2 mg film 1 film sublingual TID RF: 0 trazodone 50 mg Tablet 50 mg PO BEDTIME PRN (Reason: Insomnia) 30 Days Qty: 30 RF: 1 Discharge Orders: Discharge Order (Routine); Ordered 03/24/21 Ordered By: Jann Cruz Referrals: DAV Polk, MACI [Nurse Practitioner] - (April 01 10am) Discharge Diet: Usual diet Discharge Activity: Resume usual activity Patient Instructions: Opioid Safety Attestations Medical Necessity Statement*: The patient was on observation status, to determine his dangerousness in the context of passive suicidal ideation and previous psychiatric admissions. Time Spent in Patient Care*: greater than 30 min Specific Discharge Activities: Specific discharge activities: educating patient, discussing with pillowcase turner/social workers/dc planners, documenting/other paperwork and evaluating patient/reviewing data Status at Discharge: Cognitive status at discharge: cognitively intact, Behavioral status at discharge: cooperative, Functional status at discharge: independent ambulation Overall status at discharge: patient is back to baseline Quality Metrics Clinical Quality Measures: During this hospital stay, did patient experience: None Coding Level of Care Code Acute Oil Program Compliance Specialist for Aurelio Mcclure Diagnoses Anxiety F41.9 Depression F32.9 Opiate use F11.90
[2021-03-24 12:33] VITALS: BP 148/80; PULSE 88; RESP 20; TEMP 36.5; O2SAT 96
== END 2021-03-24 12:50 | disposition home or self-care (01) ==
LOC: ER 05:35 → NP 05:45
PROVIDERS: Admitting Provider Psychiatry & Neurology Child & Adolescent Psychiatry; Emergency Provider Emergency Medicine; Visit Provider Psychiatry & Neurology Child & Adolescent Psychiatry
DX: R45.851 Suicidal ideations (principal)
CPT/HCPCS: 80053; 80306; 80307; 85025; 99285; G0378